=== PATIENT | female | born 1940 | race Two or more races ===

== ENCOUNTER 2018-05-08 09:21 | Inpatient (IN) | payer OTHER ==
[~2018-05-08] VITALS: Ht 167.6 cm; Wt 66.7 kg
[~2018-05-08 09:21] MED LIST: ADVAIR HFA 115/12 GM; ATARAX25 MG; CLARITIN5 MG; GABAPENTIN600 MG; LEVAQUIN750 MG PO; LIPITOR40 MG; MELOXICAM15 MG; PREDNISONE IN5 MG/ML; PRILOSEC20 MG; SYNTHROID75 MCG; THEOCHRON200 MG; TRAM1TAB98 PO
[2018-05-08] MEDS ORDERED: ALBUTEROL1.25 MG/3 (09:50)
[2018-05-14] MEDS ORDERED: SYMBICORT 16010.2 GM IH (16:04)
[2018-05-14] MEDS ORDERED: MEDROLPACK PO (16:04)
[2018-05-14] MEDS ORDERED: VENTOLIN HFA18 GM IH (16:05)
== END 2018-05-14 18:57 | disposition home or self-care (01) | DRG 191 ==
LOC: ER 09:21 → MEDI 05-09 09:32
PROC: 4A033R1 Measurement of Arterial Saturation, Peripheral, Percutaneous Approach (ICD-10-PCS; principal; 2018-05-09)
PROC: 3E0F7GC Introduction of Other Therapeutic Substance into Respiratory Tract, Via Natural or Artificial Opening (ICD-10-PCS; 2018-05-09)
DX: J44.1 Chronic obstructive pulmonary disease with (acute) exacerbation (principal); B37.0 Candidal stomatitis; I10 Essential (primary) hypertension; E78.00 Pure hypercholesterolemia, unspecified; K29.60 Other gastritis without bleeding; E11.9 Type 2 diabetes mellitus without complications; D69.59 Other secondary thrombocytopenia

== ENCOUNTER 2019-01-10 14:24 | Emergency (ER) | payer OTHER ==
[~2019-01-10] VITALS: Ht 167.6 cm; Wt 64.0 kg
[~2019-01-10 14:24] MED LIST changes: +ALBUTEROL1.25 MG/3; +MEDROLPACK PO; +SYMBICORT 16010.2 GM IH; +VENTOLIN HFA18 GM IH
== END 2019-01-10 22:43 | disposition home or self-care (01) ==
LOC: ER 14:24
DX: J45.901 Unspecified asthma with (acute) exacerbation (principal); J11.1 Influenza due to unidentified influenza virus with other respiratory manifestations

== ENCOUNTER 2019-11-30 02:20 | Emergency (ER) | payer OTHER ==
[~2019-11-30] VITALS: Ht 167.6 cm; Wt 64.4 kg
[2019-11-30] MEDS ORDERED: ZITHROMAX500 MG PO ×3 (05:29→05:31)
[2019-11-30] MEDS ORDERED: ZYNCOF 20-400120 ML PO ×3 (05:29→05:31)
== END 2019-11-30 05:40 ==
LOC: ER 02:20
DX: J45.909 Unspecified asthma, uncomplicated (principal)

== ENCOUNTER 2019-12-02 08:37 | Emergency (ER) | payer OTHER ==
[~2019-12-02] VITALS: Ht 167.6 cm; Wt 64.4 kg
[~2019-12-02 08:37] MED LIST changes: +ZITHROMAX500 MG PO; +ZYNCOF 20-400120 ML PO
== END 2019-12-02 14:35 | disposition home or self-care (01) ==
LOC: ER 08:37
DX: J45.998 Other asthma (principal); J22 Unspecified acute lower respiratory infection

== ENCOUNTER 2022-02-23 12:39 | Emergency (ER) | payer OTHER ==
[~2022-02-23] VITALS: Ht 167.6 cm; Wt 62.6 kg
[2022-02-23] MEDS ORDERED: STIOLTO RESPIMAT4 GM IH (13:08)
[2022-02-23] MEDS ORDERED: INSULIN SYRING1 EA25 MC (13:08)
[2022-02-23] MEDS ORDERED: TEMAZEPAM7.5 M1 PO (13:08)
[2022-02-23] MEDS ORDERED: RAYOS1 MG PO (13:08)
[2022-02-23] MEDS ORDERED: ATORVASTATIN CA20 MG PO (13:09)
== END 2022-02-24 10:42 | disposition home or self-care (01) ==
LOC: ER 12:39
DX: J45.901 Unspecified asthma with (acute) exacerbation (principal); J20.9 Acute bronchitis, unspecified; Z88.6 Allergy status to analgesic agent; E11.9 Type 2 diabetes mellitus without complications; Z79.4 Long term (current) use of insulin; I10 Essential (primary) hypertension

== ENCOUNTER 2022-03-04 09:33 | Inpatient (IN) | payer OTHER ==
[~2022-03-04] VITALS: Ht 167.6 cm; Wt 59.0 kg
[~2022-03-04 09:33] MED LIST changes: +ATORVASTATIN CA20 MG PO; +INSULIN SYRING1 EA25 MC; +RAYOS1 MG PO; +STIOLTO RESPIMAT4 GM IH; +TEMAZEPAM7.5 M1 PO
--- NOTE | 2022-03-04 09:44 | NUR ---
SE RECIBE PACIENTE ALERTA Y ORIENTADA X 3 REFIERE TENER DIFICULTAD PARA RESPIRAR DESDE EL LEO. SE MONITOREAN S/V SAT O2 EN 93%, SE OBSERVA PACIENTE CON FATIGA . REFIERE ESTABA EN TRATAMIENTO PARA LA FATOGA Y NO A LENA EL CON EL TRATAMIENTO. EN TRATAMIENTO EN EL HOGAR PARA LA FATIGA Y NO A LENA CON EL TRATAMIENTO.
--- NOTE | 2022-03-04 09:49 | NUR ---
SE RECIEB PACIENTE ALERTA Y ORIENTADA X 3REFIERE LLEVA DESDE EL LEO CON FATIGA EN EL HOGAR Y SE ENCUENTRA BAJO TRATAMIENTO DE TERAPIAS RESPIRATORIAS. SE OBSERVA PACIENTE CON FATIGA Y LEVE ESFUERZO PARA RESPIRAR. SAT DE O2 EN 93%. SE MONITOREAN S/V SE UBICA EN UNIDAD DE ASMA.
--- NOTE | 2022-03-04 10:32 | NUR ---
SE ORIENTA PTE Y FAMILIAR SOBRE EL TRTAMIENTO ORDEANDO POR EL DR RESTREPO PTE ALERTA Y ORIENTADO POR 3 RN A.BALL REALIZA MUESTRAS DE LABORTORIO Y ADMINISTRAN MEDICAMENTO CLAUDIA ORDEANDO PTE SE MANTIENE EN OBSERVACION Y BAJO TRATAMIENTO, SE NOTOFICA A [place]AP[place] SOBRE TERAPIAS PENDIENTES.
--- NOTE | 2022-03-04 18:12 | NUR ---
PTE ALERTA EN COMPANIA DE FAMILIAR,EN GERRY CON BARANDAS ELEVADAS,AREA DE VENOPUNCION PATENTE Y LLOYD DE EDEMA CON FLUIDOS DE MANTENIMIENTO BAJANDO SIN DIFICULTAD.PENDIENTE A EVALUACION DE DR MUELLER.
[2022-03-05] MEDS ORDERED: CITALOPRAM HBR20 MG (08:01)
[2022-03-05] MEDS ORDERED: ADVAIR HFA 230/12 GM (08:20)
[2022-03-05] MEDS ORDERED: MONTELUKAST SOD10 MG (08:20)
[2022-03-05] MEDS ORDERED: ALPRAZOLAM0.25 MG (08:20)
[2022-03-05] MEDS ORDERED: RAMIPRIL2.5 MG (08:21)
[2022-03-05] MEDS ORDERED: PENTOXIFYLLINE400 MG (08:21)
[2022-03-05] MEDS ORDERED: VITAMIN B-121000 MC4 (08:21)
[2022-03-05] MEDS ORDERED: SYSTANE ULTRA 010 ML (08:21)
[2022-03-05] MEDS ORDERED: THEOPHYLLINE A300 M1 (08:21)
[2022-03-05] MEDS ORDERED: WAL-ITIN10 MG (08:22)
== END 2022-03-11 11:52 | disposition home or self-care (01) | DRG 192 ==
LOC: ER 09:33 → MEDJ 21:39 → MEDI 21:39
PROVIDERS: ADMIT Internal Medicine; ATTEND Internal Medicine
PROC: BB24ZZZ Computerized Tomography (CT Scan) of Bilateral Lungs (ICD-10-PCS; principal; 2022-03-04)
DX: J44.1 Chronic obstructive pulmonary disease with (acute) exacerbation (principal); R09.02 Hypoxemia; R06.02 Shortness of breath; J45.998 Other asthma; D69.6 Thrombocytopenia, unspecified; E11.9 Type 2 diabetes mellitus without complications; I10 Essential (primary) hypertension; Z20.822 Contact with and (suspected) exposure to COVID-19; E03.8 Other specified hypothyroidism; D72.828 Other elevated white blood cell count

== ENCOUNTER 2022-07-17 18:16 | Inpatient (IN) | payer OTHER ==
[~2022-07-17] VITALS: Ht 167.6 cm; Wt 64.4 kg
[~2022-07-17 18:16] MED LIST changes: +ADVAIR HFA 230/12 GM; +ALPRAZOLAM0.25 MG; +CITALOPRAM HBR20 MG; +MONTELUKAST SOD10 MG; +PENTOXIFYLLINE400 MG; +RAMIPRIL2.5 MG; +SYSTANE ULTRA 010 ML; +THEOPHYLLINE A300 M1; +VITAMIN B-121000 MC4; +WAL-ITIN10 MG
--- NOTE | 2022-07-17 18:42 | NUR ---
PACIENTE FEMENINA ALERTA Y ORIENTADA X3, REFIERE TENER DOLOR ABDOMINAL ERIKA Y JORGE ALBERTO EMPEZANDO EL ROSALBA DE ARASELI Y SANGRADO RECTAL.
--- NOTE | 2022-07-17 19:38 | NUR ---
SE LE ORIENTA A PACIENTE SOBRE LAS ORDENES MEDICAS, REFIERE ENTEDER LAS MISMAS. SE CANALIZA Y SE LE COLOCA LOS IVF'S, SE LE TENZIN LAS MUETRAS DE DIAMANTE, SE LE REALIZA CT Y SE LE ADMINISTRAN LOS MEDICAMENTOS CLAUDIA LAS ORDENES MEDICAS.
== END 2022-07-24 16:13 | disposition home or self-care (01) | DRG 378 ==
LOC: ER 18:16 → MEDI 22:57
PROVIDERS: ADMIT Internal Medicine; ATTEND Internal Medicine
PROC: BW21YZZ Computerized Tomography (CT Scan) of Abdomen and Pelvis using Other Contrast (ICD-10-PCS; principal; 2022-07-18)
DX: K57.33 Diverticulitis of large intestine without perforation or abscess with bleeding (principal); E27.40 Unspecified adrenocortical insufficiency; N17.9 Acute kidney failure, unspecified; K52.9 Noninfective gastroenteritis and colitis, unspecified; I73.9 Peripheral vascular disease, unspecified; D69.59 Other secondary thrombocytopenia; J44.9 Chronic obstructive pulmonary disease, unspecified; E11.9 Type 2 diabetes mellitus without complications; Z79.4 Long term (current) use of insulin; E03.9 Hypothyroidism, unspecified; I10 Essential (primary) hypertension; G47.00 Insomnia, unspecified

== ENCOUNTER 2022-12-15 14:18 | Emergency (ER) | payer OTHER ==
[~2022-12-15] VITALS: Ht 162.6 cm; Wt 61.7 kg
[2022-12-15] MEDS ORDERED: LEVSIN/SL0.125 MG SL (21:52)
== END 2022-12-15 22:29 | disposition home or self-care (01) ==
LOC: ER 14:18
DX: R10.31 Right lower quadrant pain (principal); K57.90 Diverticulosis of intestine, part unspecified, without perforation or abscess without bleeding; J90 Pleural effusion, not elsewhere classified; K29.60 Other gastritis without bleeding; Z88.6 Allergy status to analgesic agent; E11.9 Type 2 diabetes mellitus without complications; I10 Essential (primary) hypertension

== ENCOUNTER 2022-12-19 08:29 | Outpatient (CLI) | payer OTHER ==
[~2022-12-19 08:29] MED LIST changes: +LEVSIN/SL0.125 MG SL
== END 2022-12-19 08:39 | disposition home or self-care (01) ==
LOC: MRI 08:29
PROVIDERS: ATTEND Internal Medicine Hepatology
DX: K76.0 Fatty (change of) liver, not elsewhere classified (principal)
CPT/HCPCS: 74183; Q9965; 74182

== ENCOUNTER 2023-01-08 07:32 | Outpatient (CLI) | payer OTHER ==
[2023-01-09] MEDS ORDERED: GRALISE600 MG PO (16:07)
[2023-01-09] MEDS ORDERED: ACID REDUCER20 M1 PO (16:07)
[2023-01-09] MEDS ORDERED: HUMALOG MI100 UNIT/2 SQ (16:07)
== END 2023-01-08 07:33 | disposition home or self-care (01) ==
LOC: NUCLEAR 07:32
PROVIDERS: ATTEND Internal Medicine Hematology & Oncology
DX: C22.9 Malignant neoplasm of liver, not specified as primary or secondary (principal); C78.6 Secondary malignant neoplasm of retroperitoneum and peritoneum
CPT/HCPCS: 78816; A9552

== ENCOUNTER 2023-01-09 15:36 | Inpatient (IN) | payer OTHER ==
[~2023-01-09] VITALS: Ht 162.6 cm; Wt 59.0 kg
[2023-01-09] MEDS ORDERED: GRALISE600 MG PO (16:07)
[2023-01-09] MEDS ORDERED: ACID REDUCER20 M1 PO (16:07)
[2023-01-09] MEDS ORDERED: HUMALOG MI100 UNIT/2 SQ (16:07)
--- NOTE | 2023-01-09 16:08 | NUR ---
SE RECIBE PACIENTE ALERTA Y ORIENTADA X3 EN AMBULANCIA, ACOMPADA POR PRATHER FAMILIAR QUIEN REFIERE QUE LA PACIENTE PRESENTA DISTENCION ABDOMINAL Y DOLOR ABDOMINAL EN EL LADO DERECHO E FRANKO.
== END 2023-01-11 03:54 | disposition expired | DRG 435 ==
LOC: ER 15:36 → MEDJ 22:53 → ICU 22:53 → MEDJ 23:04 → ICU 23:24 → ICU-2 01-10 00:51 → ICU 01-10 03:42
PROVIDERS: ADMIT Internal Medicine; ATTEND Internal Medicine
PROC: BW21ZZZ Computerized Tomography (CT Scan) of Abdomen and Pelvis (ICD-10-PCS; 2023-01-09)
PROC: 0BH17EZ Insertion of Endotracheal Airway into Trachea, Via Natural or Artificial Opening (ICD-10-PCS; principal; 2023-01-10)
PROC: 5A1935Z Respiratory Ventilation, Less than 24 Consecutive Hours (ICD-10-PCS; 2023-01-10)
PROC: 02HV33Z Insertion of Infusion Device into Superior Vena Cava, Percutaneous Approach (ICD-10-PCS; 2023-01-10)
DX: C78.7 Secondary malignant neoplasm of liver and intrahepatic bile duct (principal); J96.00 Acute respiratory failure, unspecified whether with hypoxia or hypercapnia; R65.21 Severe sepsis with septic shock; R18.8 Other ascites; N17.8 Other acute kidney failure; E27.49 Other adrenocortical insufficiency; C80.1 Malignant (primary) neoplasm, unspecified; K76.89 Other specified diseases of liver; E03.9 Hypothyroidism, unspecified; Z74.01 Bed confinement status; Z79.4 Long term (current) use of insulin; J44.9 Chronic obstructive pulmonary disease, unspecified; Z20.822 Contact with and (suspected) exposure to COVID-19; E11.65 Type 2 diabetes mellitus with hyperglycemia